=== PATIENT | male | born 1945 | race Caucasian/White ===

== ENCOUNTER 2018-01-07 16:48 | Emergency (ER) | payer BC ==
[2018-01-07] MEDS: PROPARACAINE HCL OPTH 15ML BTL OPTH ONE (17:17)
[2018-01-07] MEDS: ERYTHROMYCIN OPTH OINT 3.5GM OPTH ONE (17:22)
--- NOTE | 2018-01-07 17:24 | Emergency Department Record ---
History of Present Illness - General Chief complaint: Eye Problem Stated complaint: FB IN R EYE Time Seen by Provider: 01/07/18 17:09 Source: Patient Mode of Arrival: Ambulatory Limitations: No limitations - History of Present Illness Initial comments: The patient was outside doing yard work and was under a tree and felt something blow into the R eye. There was no direct trauma or injury. Now he feels there is a FB in the L eye. He denies any blurred vision. chief complaint: Eye pain, Foreign body Onset/Timin -: Hour(s) Onset Description: Sudden Location: Right eye Place: Home Severity: Moderate Consistency: Constant Associated Symptoms: None - Related Data Visual acuity (L) = 20/: 20 Visual acuity (R) = 20/: 50 Home Medications Medication Instructions Recorded Confirmed Last Taken Carvedilol 25 mg PO ASDIR 01/07/18 01/07/18 01/07/18 Chlorthalidone 50 mg PO ASDIR 01/07/18 01/07/18 01/07/18 Fentanyl 50 mcg TOP ASDIR 01/07/18 01/07/18 01/07/18 Glipizide [Glucotrol] 5 mg PO BID 01/07/18 01/07/18 01/07/18 Isosorbide Mononitrate [Imdur] 60 mg PO ASDIR 01/07/18 01/07/18 01/07/18 Lisinopril 40 mg PO DAILY 01/07/18 01/07/18 01/07/18 Metformin HCl [Metformin HCl ER] 1,000 mg PO DAILY 01/07/18 01/07/18 01/07/18 Potassium Chloride [Klor-Con] 20 meq PO DAILY 01/07/18 01/07/18 01/07/18 Sitagliptin Phosphate [Januvia] 100 g PO DAILY 01/07/18 01/07/18 01/07/18 Allergies Allergy/AdvReac Type Severity Reaction Status Date / Time captopril [CAPTOPRIL] Allergy Unknown PT UNSURE Unverified 01/07/18 16:58 OF REACTION Allergies: Allergy Unknown PT UNSURE Uncoded 01/07/18 16:58 OF REACTION Latex Allergy: Allergy Unknown PT UNSURE Uncoded 01/07/18 16:58 OF REACTION Travel Screening - Travel/Exposure Within Last 30 Days Have you traveled within the last 30 days?: No - Travel/Exposure Within Last Year Have you traveled outside the [place] in the last year?: No - Additonal Travel Details Have you been exposed to anyone with a communicable illness?: No - Travel Symptoms Symptom Screening: None Review of Systems Constitutional: Denies: Chills, Fever Past Medical History - SOCIAL HISTORY Smoking Status: Never smoker Alcohol Use: None Drug Use: None - RESPIRATORY Hx Respiratory Disorders: No - CARDIOVASCULAR Hx Cardio Disorders: Yes Hx Hypertension: Yes Comment:: high cholesterol - NEURO Hx Neuro Disorders: No - GI Hx GI Disorders: No - Hx Genitourinary Disorders: No - ENDOCRINE Hx Endocrine Disorders: Yes Hx Diabetes: Yes Hx Thyroid Disease: No - MUSCULOSKELETAL Hx Musculoskeletal Disorders: Yes - PSYCH Hx Psych Problems: No - HEMATOLOGY/ONCOLOGY Hx Hematology/Oncology Disorders: Yes Hx Cancer: Yes Family Medical History Any Significant Family History?: No Physical Exam - General General Appearance: Alert, Oriented x3, Cooperative, No acute distress - Head Head exam: Atraumatic, Normocephalic, Normal inspection - Eye Eye exam: PERRL, Conjunctival injection (Mild R eye.), EOMI, Other (A large FB was removed from under the patient's R eyelid upon eversion of the lid. There are very subtle linear corneal FB's vertically oriented. After removing the FB the patient was 100% improved.). negative: Normal appearance, Periorbital swelling, Periorbital tenderness Course Vital Signs 01/07/18 17:05 Temperature 98 F Pulse Rate 79 Respiratory 20 Rate Blood Pressure 160/85 Pulse Ox 97 - Reevaluation(s) Reevaluation #1: Procedure note: The R eye was anesth. with alcaine. A large FB was removed with a Qtip after lid eversion. There were no complications. There were very subtle vertically oriented corneal abrasions present on flourescein staining. 01/07/18 17:22 Disposition Disposition: Discharge Clinical Impression: Corneal FB (foreign body) Qualifiers: Encounter type: initial encounter Laterality: right Qualified Code(s): T15.01XA - Foreign body in cornea, right eye, initial encounter Disposition: Home, Self-Care Condition: (2) Stable Instructions: Eye Foreign Body (ED) Additional Instructions: Please use the eye ointment 3 times a day for 3 days. Return to the ER if not 100% better in 2 days. Forms: Patient Portal Access Time of Disposition: 17:24 Quality - Quality Measures Quality Measures: N/A - Blood Pressure Screening View Details: Yes Does Patient Have Any of the Following: No Blood Pressure Classification: Pre-Hypertensive BP Reading Systolic Measurement: 160 Diastolic Measurement: 85 Screening for High Blood Pressure: < Pre-Hypertensive BP, F/U Documented > [ [id number]] Pre-Hypertensive Follow-up Interventions: Referral to alternative/primary care provider.
== END 2018-01-07 17:36 | disposition home or self-care (01) ==
LOC: ER 16:48
DX: T15.01XA Foreign body in cornea, right eye, initial encounter (principal); W22.8XXA Striking against or struck by other objects, initial encounter; Y92.007 Garden or yard of unspecified non-institutional (private) residence as the place of occurrence of the external cause; I10 Essential (primary) hypertension
CPT/HCPCS: 65220; 99283

== ENCOUNTER 2019-05-06 08:15 | Day surgery (SDC) | payer BC ==
--- NOTE | 2019-05-06 07:00 | History and Physical - [facility] ---
CHIEF COMPLAINT/HISTORY OF CHIEF COMPLAINT: This patient presents with a history of an intractable lumbar radiculopathy which is as a source post laminectomy. Due to the failure of therapy, a spinal cord stimulator trial was conducted with 75-85% pain control. Due to the failure of all therapies and the success of the trial, the patient presents today for implantation of a permanent system. PAST MEDICAL HISTORY: Cardiac disease and degenerative arthritis. PAST SURGICAL HISTORY: Knee replacements and lumbar spinal surgery. MEDICATIONS ON ADMISSION: List to be provided. No blood thinners. ALLERGIES: CAPTOPRIL. FAMILY/PSYCHOSOCIAL HISTORY: Social history - Caffeine. Family history - Noncontributory. SYSTEMS REVIEW: The patient is appropriate in no acute distress. PHYSICAL EXAMINATION: No height and weight known. Vital signs are not available. HEENT: Within normal limits. LUNGS: Clear. HEART: Rapid and regular. ABDOMEN: Nontender. MUSCULOSKELETAL: Examination of the musculoskeletal system shows diffuse tenderness throughout the lumbar spine. Range of motion does produce pain throughout the low back and extending into both legs. There is some mild motor and sensory abnormalities. There is some weakness in his legs. An assistive device is used when necessary. NEUROLOGIC: Cranial nerves are intact. IMPRESSION: POST LUMBAR LAMINECTOMY SYNDROME, ICD-10 CODE M96.1 WITH LUMBAR RADICULOPATHY, ICD-10 CODE M54.16 AND M54.17. PLAN: Due to the failure of therapies and the success of a stimulator trial, the patient presents today for implantation of a permanent system. The procedure will be considered outpatient although an overnight stay will be evaluated. All questions have been answered. He was put in contact with a clinical specialist who also reviewed the procedure, risks, side effects and complications. JOB NUMBER: [id number] MTDD
[~2019-05-06 08:15] MED LIST: ACETAMINOPHEN 1,000 MG/100 ML BTL IVPB ONE; CEFAZOLIN 2 Gram 2 GM/50 ML BAG IVPB ONE; FAMOTIDINE 20MG TABLET PO ONE; MECLIZINE 25 MG TABLET PO ONE; METOCLOPRAMIDE 10 MG TABLET PO ONE
[2019-05-06] MEDS ORDERED: MIDAZOLAM HCL 2MG/2ML VIAL IV ONE (08:16)
[2019-05-06] MEDS ORDERED: FENTANYL PF 100MCG/2ML VIAL IV ONE (08:16)
[2019-05-06] MEDS ORDERED: PROPOFOL 10 MG/ML VIAL IV ONE (08:16)
[2019-05-06] MEDS ORDERED: LIDOCAINE 2% MDV (20MG/ML) 20ML VIAL IV ONE (08:16)
[2019-05-06] MEDS ORDERED: 0.9 % SODIUM CHLORIDE 1000ML 1,000 ML IV ONE (09:15)
[2019-05-06] MEDS ORDERED: LIDOCAINE 1% W/EPI 1:100,000 MDV 20 ML VIAL SQ ONE (11:47)
[2019-05-06] MEDS ORDERED: Clindamycin 600mg vial 150 MG/ML VIAL IR ONE (11:48)
[2019-05-06] MEDS ORDERED: BUPIVACAINE 0.5% W/EPI MPF 30 ML VIAL SQ ONE (11:48)
--- NOTE | 2019-05-08 19:11 | RADIOLOGY REPORT ---
EXAMINATION: Thoracolumbar Spine Single View EXAM DATE: 05/06/2019 1:10 PM TECHNIQUE: AP INDICATION: S/P SCS IMPLANT LEADS AND GENERATOR COMPARISON: 09/14/2018 ENCOUNTER: Initial FINDINGS: AP view of the thoracolumbar spine is obtained. Partially visualized fixation hardware in the lumbar spine. There is a new spinal cord stimulator device. The leads appear intact, terminating at the T7 l evel. IMPRESSION: Unremarkable postoperative appearance following placement of spinal cord stimulator device. Dictated by: Lex Bautista MD on 05/08/2019 7:05 PM. .
--- NOTE | 2019-05-09 08:19 | Operative Note - [facility] ---
DATE OF SURGERY: 05/06/2019 PREOPERATIVE DIAGNOSIS: POST LUMBAR LAMINECTOMY SYNDROME, ICD-10 CODE M96.1 WITH LUMBAR RADICULOPATHY, ICD-10 CODE M54.16 AND M54.17. OPERATION: 1. FLUOROSCOPICALLY GUIDED LEFT EPIDURAL ACCESS T11-T12, PLACEMENT OF SPINAL CORD STIMULATOR LEAD 1 [employer] 16, 6-ELECTRODES POSITIONED LEFT T7. 2. FLUOROSCOPICALLY GUIDED EPIDURAL ACCES LEFT T12-L1, PLACEMENT OF SPINAL CORD STIMULATOR LEAD 2 [employer] 16, 6-ELECTRODES POSITIONED RIGHT T7. 3. COMPLEX PROGRAMMING OF LEAD 1 OVER TWENTY MINUTES WELL COMPLEX PROGRAMMING OF LEAD 2 OVER TWENTY MINUTES. 4. INCISION, SUBCUTANEOUS DISSECTION, ANCHORING OF LEAD 1 AND LEAD 2 TO THE SUPRASPINOUS FASCIA WITH A [employer] LOCKING ANCHOR NONABSORBABLE SUTURE. 5. INCISION, SUBCUTANEOUS DISSECTION, CREATION OF SUBCUTANEOUS POUCH AT LEFT POSTERIOR GLUTEAL MARGIN FOR PLACEMENT OF GENERATOR A [employer] PROGRAMMABLE RECHARGEABLE WAVEWRITER. 6. TUNNELLING BETWEEN POUCHES, PLACEMENT OF EXTERNAL PORTION OF LEAD 1 AND LEAD 2 INTO THE GENERATOR POUCH, EACH LEAD INTERFACED WITH THE GENERATOR. 7. PLACEMENT OF GENERATOR INTO POUCH, PLACEMENT OF LEADS INTO POUCH, AND CLOSURE OF BOTH INCISIONS STRATAFIX SUTURE 2-0 FASCIA AND 3-0 SKIN. DERMABOND CLOSURE APPROXIMATING EDGES OF WOUND. 8. COMPLEX RECOVERY ROOM PROGRAMMING INTERNAL GENERATOR HOME USE TWO STIMULATORS TWENTY MINUTES. SURGEON: Raul Hendricks D.O. ANESTHESIA: Local sedation. ANESTHESIA PROVIDER: JAMAAL Masterson CRNA INDICATION: This patient presents with a history of a post lumbar laminectomy radiculopathy. Due to the failure of all therapies, a spinal cord stimulator trial was conducted with 75-85% pain control. Due to the failure of all therapies and the success of this trial, he presents today for implantation of a permanent system. PROCEDURE: Intravenous line, vital sign monitoring, IV sedation, prepped and draped, sterile technique. The patient is positioned prone. Under imaging the epidural interspace from the left at T11-T12 and T12-L1 were both marked , the skin was infiltrated using separate curved access Epimed needles with loss of resistance, the space was accessed. At T11-T12, spinal cord stimulator Lead 1 [employer] 16, 6-electrodes positioned left of T7. With the access at T12-L1 the spinal cord stimulator Lead 2 [employer] 16, 6-electrodes was positioned right at T7. Complex programming of Lead 1 over twenty minutes followed by complex programming of Lead 2 over twenty minutes resulting in complete pattern stimulation across the back into the legs. The patient indicated we had control of all of the areas of pain. The question was repeated with the same response. He was re-sedated. The skin above and below the needles was infiltrated, an incision was made and subcutaneous dissection was conducted to the supraspinous fascia. The needles were removed and each lead anchored to the supraspinous fascia with a [employer] locking anchor and nonabsorbable suture. At the left posterior gluteal margin a site picked by the patient for the generator the skin was infiltrated, an incision was made and subcutaneous dissection was conducted to form a pouch of suitable size and depth for the generator, a [employer] programmable rechargeable WaveWriter. A tunnelling tool was used to carry the leads into the pouch and then each lead was interfaced with the generator. Antibiotic irrigation, Bovie for hemostasis. The generator was placed into the pouch, the leads were placed into the pouch, and then both incisions were closed using Stratafix suture 2-0 fascia and 3-0 skin. Dermabond closure was then used to approximate the edges of both wounds. He was transferred to the Recovery Room stable. There were side effects from the procedure or sedation. When fully awake and alert complex programming was performed re-establishing stimulation pain control over all of the appropriate areas. He was requesting discharge home. He and his were provided with information on programming and charging. DISCHARGE INSTRUCTIONS: 1. The sites will remain clean and dry, although the Dermabond will allow showering he should not sit in water. 2. Standard medications resumed including the antibiotic Levaquin, which was called. He will take one 500 mg once a day for fourteen days. An analgesic [place] has been provided for postoperative pain control for seven days. 3. All other instructions are provided. Numbers to contact if problems given. The office is to contact the patient in 12-24 hours to set up a time in 7-10 days to evaluate his sites, until then he is to keep his activities low. Limit bend, lift, push, pull. All other instructions are provided. Numbers to contact if problems given. He was then discharged. JOB NUMBER: [id number] [facility]
== END 2019-05-06 14:17 | disposition home or self-care (01) ==
LOC: SUR 08:15
PROVIDERS: ATTEND Pain Medicine Interventional Pain Medicine
DX: M96.1 Postlaminectomy syndrome, not elsewhere classified (principal); M54.16 Radiculopathy, lumbar region; M54.17 Radiculopathy, lumbosacral region; I10 Essential (primary) hypertension; E78.00 Pure hypercholesterolemia, unspecified; E11.9 Type 2 diabetes mellitus without complications; N40.0 Benign prostatic hyperplasia without lower urinary tract symptoms; Z95.0 Presence of cardiac pacemaker
CPT/HCPCS: 36416; 72020; 82948; 95972; C1820; C1883; J7030